=== PATIENT | female | born 1950 | race Caucasian/White ===

== ENCOUNTER 2024-01-12 11:54 | Outpatient (CLI) | payer MEDICARE, OTHER ==
[2024-01-12 13:43] LABS: Hematocrit 37.5 % (34.9-44.5); Mean Corpuscular Hemoglobin 29.8 pg (27.0-33.0); Mean Corpuscular Volume 93.1 fL (81.6-98.3); Mean Platelet Volume 10.6 fL (7.4-10.4); Platelet Count 147 10x3/uL (150-450); RBC Distribution Width 13.1 % (11.5-14.5); Red Blood Cell (RBC) Count 4.03 10x6/uL (3.90-5.03); White Blood Cell (WBC) Count 4.6 10x3/uL (3.5-10.5)
[2024-01-12 13:44] LABS: Bilirubin Neg (Negative); Blood, Urine 25 (Negative); Clarity Clear (Clear); Glucose, Urine (Dipstick) Normal (Negative); Ketone, Urine Negative (Negative); Leukocyte 100 (Negative); Nitrite Negative (Negative); Protein, Urine (Dipstick) Negative (Neg-Trace); Specific Gravity, Urine 1.015 (1.005-1.030); Urobilinogen Normal mg/dL (Less than 2)
[2024-01-12 15:08] LABS: Anion Gap 11 mmol/L (10-20); BUN (Urea Nitrogen) 12 mg/dL (9.8-20.1); Calc. Creatinine Clearance 0 mL/min (70-130); Carbon Dioxide 27 mmol/L (23-31); Chloride 106 mmol/L (98-107); Estimated GFR 78; Glucose 120 mg/dL (83-110); Sodium 140 mmol/L (136-145)
== END 2024-01-12 11:55 | disposition home or self-care (01) ==
LOC: CSHLAB 11:54
PROVIDERS: ATTEND Surgery
DX: Z01.812 Encounter for preprocedural laboratory examination (principal); K40.90 Unilateral inguinal hernia, without obstruction or gangrene, not specified as recurrent
CPT/HCPCS: 80048; 81003; 85027

== ENCOUNTER 2024-01-14 06:10 | Day surgery (SDC) | payer MEDICARE, OTHER ==
[2024-01-12 12:24] VITALS: BMI 32.6
[2024-01-14] MEDS ORDERED: Bupivacaine HCl 0.5%/Epinephrine 1:200,000/PF 30 ml Vial ONE (07:28)
[2024-01-14] MEDS ORDERED: PROPOFOL 20 ML ONE (07:45)
[2024-01-14] MEDS ORDERED: Rocuronium Bromide 10 MG/ML (10ML VIAL) ONE (07:45)
[2024-01-14] MEDS ORDERED: fentaNYL 50 mcg/mL 1 mL Vial ONE ×2 (07:45→09:52)
[2024-01-14] MEDS ORDERED: Lidocaine 1% PF 5 ML VIAL ONE (07:45)
[2024-01-14] MEDS ORDERED: CEFAZOLIN 2 GM VIAL ONE (07:47)
[2024-01-14] MEDS ORDERED: Dexamethasone 20 MG/5 ML VIAL ONE (08:13)
[2024-01-14] MEDS ORDERED: Ondansetron PF 4 MG/2 ML Vial ONE ×2 (08:13→13:11)
[2024-01-14] MEDS ORDERED: SUGAMMADEX SODIUM 200 MG/2 ML VIAL ONE (09:23)
[2024-01-14] MEDS ORDERED: Acetaminophen 500 MG TAB ONE (12:27)
== END 2024-01-14 16:00 | disposition home or self-care (01) ==
LOC: CSHSDC 06:10
PROVIDERS: ATTEND Surgery
PROC: 0WUF4JZ Supplement Abdominal Wall with Synthetic Substitute, Percutaneous Endoscopic Approach (ICD-10-PCS; principal; 2024-01-14)
PROC: 0YU54JZ Supplement Right Inguinal Region with Synthetic Substitute, Percutaneous Endoscopic Approach (ICD-10-PCS; 2024-01-14)
DX: K43.2 Incisional hernia without obstruction or gangrene (principal); K40.90 Unilateral inguinal hernia, without obstruction or gangrene, not specified as recurrent; I10 Essential (primary) hypertension; J30.2 Other seasonal allergic rhinitis; M19.90 Unspecified osteoarthritis, unspecified site; K21.9 Gastro-esophageal reflux disease without esophagitis; E78.5 Hyperlipidemia, unspecified; Z90.710 Acquired absence of both cervix and uterus; Z98.890 Other specified postprocedural states; Z88.5 Allergy status to narcotic agent; Z88.6 Allergy status to analgesic agent; Z88.8 Allergy status to other drugs, medicaments and biological substances; Z79.899 Other long term (current) drug therapy
CPT/HCPCS: 49616; 49650; C1781 ×2; J1100; J2405; J2704; J3010; S2900